=== PATIENT | male | born 1995 | race Caucasian/White ===

== ENCOUNTER 2019-08-21 13:36 | Emergency (ER) | payer OTHER ==
[2019-08-21 14:04] VITALS: BP 111/68
--- NOTE | 2019-08-21 14:17 | UC ---
Abdominal Pain Male HPI - HPI Summary HPI Summary: nausea / vomiting x 3 days symptoms are moderated, worse with food better npo. no abdominal pain, no fever, no chills, no diarrhea, no urinary sx rash on his arms , hands, lower abd. rash is very itchy, most likely due to the chemicals at work - History of Current Complaint Chief Complaint: UCGeneralIllness Stated Complaint: VOMITING/RASH Time Seen by Provider: 08/21/19 13:43 Hx Obtained From: Patient Onset/Duration: Gradual Onset, Lasting Days - 3, Still Present Severity Initially: Moderate Severity Currently: Moderate Pain Intensity: 0 Location: Diffuse Radiates: No Character: Cramping Aggravating Factor(s): Food Alleviating Factor(s): Rest Associated Signs And Symptoms: Positive: Decreased Appetite, Nausea, Vomiting. 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 clavulanic acid Allergy Unknown Garcia Verified 08/21/19 13:55 [From Augmentin] Johnsons syndrome Home Medications: Home Medications Bismuth Subsalicylate [Pepto-Bismol Max Strength] 2 tab PO PRN 08/21/19 [History ] PMH/Surg Hx/FS Hx/Imm Hx Previously Healthy: Yes - Surgical History Surgical History: Yes Surgery Procedure, Year, and Place: HAMMER TOE REPAIR - Family History Known Family History: Negative: Diabetes - Social History Alcohol Use: Rare Substance Use Type: None Smoking Status (MU): Never Smoked Tobacco Type: Smokeless Tobacco Amount Used/How Often: 1-2 cans a week - Immunization History Most Recent Tetanus Shot: 2004 Review of Systems All Other Systems Reviewed And Are Negative: Yes Constitutional: Positive: Negative Skin: Positive: Rash Eyes: Positive: Negative ENT: Positive: Negative Cardiovascular: Positive: Negative Gastrointestinal: Positive: Vomiting, Nausea. Negative: Abdominal Pain, Diarrhea Genitourinary: Negative: Dysuria Is Patient Immunocompromised?: No Physical Exam Triage Information Reviewed: Yes Appearance: Well-Appearing, No Pain Distress, Obese Vital Signs: Initial Vital Signs Temp 98.6 F 08/21/19 13:56 Pulse 73 08/21/19 13:56 Resp 17 08/21/19 13:56 BP 111/68 08/21/19 13:56 Pulse Ox 97 08/21/19 13:56 Vital Signs Reviewed: Yes Eye Exam: Normal Eyes: Positive: Conjunctiva Clear ENT: Positive: Normal ENT inspection, Hearing grossly normal, Pharynx normal Neck: Positive: Supple, Nontender, No Lymphadenopathy Respiratory: Positive: Chest non-tender, Lungs clear, Normal breath sounds Cardiovascular: Positive: RRR, No Murmur, Pulses Normal Abdomen Description: Positive: Nontender, Soft. Negative: CVA Tenderness (R), CVA Tenderness (L), Distended, Guarding Bowel Sounds: Positive: Present Musculoskeletal Exam: Normal Musculoskeletal: Positive: Strength Intact Neurological: Positive: Alert Psychological Exam: Normal Skin: Positive: Rashes - papular rash bilateral forearm , hands, Abd Pain Male Course/Dx - Differential Dx/Clinical Impression Provider Diagnosis: Gastritis, Contact dermatitis Discharge ED - Sign-Out/Discharge Documenting (check all that apply): Patient Departure All imaging exams completed and their final reports reviewed: No Studies - Discharge Plan Condition: Stable Disposition: HOME Prescriptions: Ondansetron ODT TAB* [Zofran 4 MG Odt TAB*] 8 mg PO Q8H PRN #6 tab.odt PRN Reason: Nausea/Vomiting Triamcinolone 0.1% CREAM (NF) [Kenalog 0.1% Cream (NF)] 1 applic TOPICAL BID # 60 gm Patient Education Materials: Gastritis (ED), Contact Dermatitis (ED) Forms: *Work Release Referrals: Juju Garcia PA [Primary Care Provider] - If Needed - Billing Disposition and Condition Condition: STABLE Disposition: Home
== END 2019-08-21 14:17 | disposition home or self-care (01) ==
LOC: UCCORT 13:36
DX: K52.9 Noninfective gastroenteritis and colitis, unspecified (principal); L25.9 Unspecified contact dermatitis, unspecified cause; Z88.0 Allergy status to penicillin; Z88.1 Allergy status to other antibiotic agents
CPT/HCPCS: 99202; G0463